=== PATIENT | female | born 1965 | race Asian ===

== ENCOUNTER 2017-03-07 14:39 | Inpatient (IN) | payer OTHER ==
[2017-03-07 14:44] VITALS: BMI 24.3
--- NOTE | 2017-03-07 14:47 | PDOC ---
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 The patient states she was in her usual state of health until she felt left facial numbness around 11:45AM. She also reports experiencing a left-sided tension- like headache. She denies any upper or lower extremity weakness/numbness. She denies visual changes. She denies changes in her speech. Allergies: NSAIDS, Tetanus vaccine <Karla Mauro - Last Filed: 03/07/17 15:55> - General History Source: Patient Exam Limitations: No Limitations <Laureano Barnett - Last Filed: 03/07/17 16:03> - General Chief Complaint: CVA/TIA Stated Complaint: NUMBNESS Time Seen by Provider: 03/07/17 14:41 Past History <Karla Mauro - Last Filed: 03/07/17 15:55> - Past Medical History Anemia: Yes Asthma: No Cancer: No Cardiac Disorders: Yes (CARDIAC CATH-CHEST PAIN) CVA: No COPD: No CHF: No Dementia: No Diabetes: No GI Disorders: Yes (duodenal ulcer;GERD) Disorders: (NEPHROTIC SYNDROME A CHILD) HTN: Yes Hypercholesterolemia: Yes Seizures: No Thyroid Disease: No - Surgical History Abdominal Surgery: No Appendectomy: No Cholecystectomy: No - Reproductive History Dysfunctional Uterine Bleeding: Yes - Immunization History Immunization Up to Date: Yes - Suicide/Smoking/Psychosocial Hx Smoking Status: No Smoking History: Never smoked Years of Tobacco Use: 0 Have you smoked in the past 12 months: No Number of Cigarettes Smoked Daily: 0 Cigars Per Day: 0 Hx Alcohol Use: No Drug/Substance Use Hx: No Substance Use Type: None Hx Substance Use Treatment: No <Laureano Barnett - Last Filed: 03/07/17 16:03> - Past Medical History Allergies/Adverse Reactions: Allergies Allergy/AdvReac Type Severity Reaction Status Date / Time NSAIDS (Non-Steroidal Allergy Mild Verified 03/07/17 14:44 Anti-Inflamma [Nsaids] Tetanus Vaccines and Toxoid Allergy Verified 03/07/17 14:44 [Tetanus] Home Medications: Ambulatory Orders Ascorbate Calcium [Vitamin C] 1,000 mg PO DAILY 02/18/16 Review of Systems - Review of Systems Able to Perform ROS?: Yes Comments:: 03/07/17 14:56 GENERAL/CONSTITUTIONAL: No fever or chills. No weakness. HEAD, EYES, EARS, NOSE AND THROAT: No change in vision. No ear pain or discharge. No sore throat. CARDIOVASCULAR: No chest pain or shortness of breath. RESPIRATORY: No cough, wheezing, or hemoptysis. GASTROINTESTINAL: No nausea, vomiting, diarrhea or constipation. GENITOURINARY: No dysuria, frequency, or change in urination. MUSCULOSKELETAL: No joint or muscle swelling or pain. No neck or back pain. SKIN: No rash NEUROLOGIC: (+) left facial numbness and tension like headache. No vertigo, loss of consciousness, or change in strength ENDOCRINE: No increased thirst. No abnormal weight change. HEMATOLOGIC/LYMPHATIC: No anemia, easy bleeding, or history of blood clots. ALLERGIC/IMMUNOLOGIC: No hives or skin allergy. <Karla Mauro - Last Filed: 03/07/17 15:55> *Physical Exam - Vital Signs Last Vital Signs Temp Pulse Resp BP Pulse Ox 98.5 F 68 18 176/110 98 03/07/17 14:42 03/07/17 14:42 03/07/17 14:42 03/07/17 14:42 03/07/17 14:42 - Physical Exam Comments: 03/07/17 14:57 GENERAL: Awake, alert, and fully oriented, in no acute distress HEAD: No signs of trauma EYES: PERRLA, EOMI, sclera anicteric, conjunctiva clear ENT: Auricles normal inspection, hearing grossly normal, nares patent, oropharynx clear without exudates. Moist mucosa NECK: Normal ROM, supple, no lymphadenopathy, JVD, or masses LUNGS: Breath sounds equal, clear to auscultation bilaterally. No wheezes, and no crackles HEART: Regular rate and rhythm, normal S1 and S2, no murmurs, rubs or gallops ABDOMEN: Soft, nontender, normoactive bowel sounds. No guarding, no rebound. No masses EXTREMITIES: Normal range of motion, no edema. No clubbing or cyanosis. No cords, erythema, or tenderness NEUROLOGICAL: (+) Cranial nerves II-XII intact except decreased left facial sensation. No facial droop, able to wrinkle forehead, 5/5 strength upper and lower extremities. Heel to fournier normal. finger to nose normal. no pronator drift. speech normal. normal gait. Sensation intact in upper and lower extremities. Rapid alternations intact. SKIN: Warm, Dry, normal turgor, no rashes or lesions noted. <Karla Mauro - Last Filed: 03/07/17 15:55> NIH Stroke Scale - Last Known Well Date/Time & Onset Date Last Known Well: 03/07/17 Time Last Known Well: 11:45 - Initial Evaluation Level of consciousness: Alert Ask patient the month and their age: Answers both correctly Ask patient to open & close eyes; make fist and let go: Obeys both correctly Best gaze (horizontal eye movement): Normal Visual field testing: No visual field loss Facial paresis (Show teeth/raise eyebrows/close eyes tight): Normal symmetrical movement Motor Function: Left Arm: Normal Motor Function: Right Arm: Normal (extends arm 90 (or 45) degrees for 10 seconds without drift Motor Function: Left Leg: Normal (extends leg 30 degrees for 5 seconds without drift) Motor Function: Right Leg: Normal (extends leg 30 degrees for 5 seconds without drift) Limb Ataxia: No ataxia Sensory(Use pinprick test arms,legs,trunk,face/side to side): Mild to moderate decrease in sensation Best language (Describe picture, name items, read sentences): No Aphasia Dysarthria (read several words): Normal articulation Extinction and Inattention: No abnormality - Total Score NIH Stroke Scale Score: 1 <Laureano Barnett - Last Filed: 03/07/17 16:03> tPA Exclusion Checklist 0-3hr - Time Elapsed Date last known well: 03/07/17 Time last known well: 11:45 Elaspsed time: Day(s) and 4 Hour(s) and 17 Minutes - Thrombolytic Therapy Candidate Is the patient eligible for Thrombolytic Therapy?: No - Exclusion Criteria 0-3hr SBP greater than 185 or DBP greater than 110mmHg despite tx: No - Relative Exclusion Criteria 0-3h Stroke severity too mild: Yes - Ineligibility reason(s) Reasons No tPA given: See reason(s) noted above <Laureano Barnett - Last Filed: 03/07/17 16:03> TIA Risk Factors - ABCD Score Age: Age < 60 Blood Pressure: SBP =/> 140 Clinical Features of TIA: Uni wk w/wo speech impair Duration: TIA duration = or > 60min Diabetes: No Total ABCD2 Score (0-7):: 5 <Laureano Barnett - Last Filed: 03/07/17 16:03> Heart Score/ECG Review #1 ECG reviewed & interpreted by me at: 14:50 03/07/17 15:02 NSR 76, no std/natali, T wave flat III, normal axis, normal intervals, QTC 456 msec <Laureano Barnett - Last Filed: 03/07/17 16:03> Critical Care Time/MDM Note - Medical Decision Making Note: 03/07/17 14:58 Documentation prepared by Karla Mauro, acting as medical assistant per diem for Laureano Barnett MD, 03/07/17 15:43 Dr. Sim was paged via phone answering service at this time requesting a call back for doctor to doctor consult. 03/07/17 15:47 Dr. Sim returned the call at this time and the patient's case was discussed at length. 03/07/17 15:53 Dr. Gambino, Cardiology, was paged at this time requesting a call back for consult. 03/07/17 15:55 The patient's case was discussed with Dr. William, Cardiology, at this time. <Karla Mauro - Last Filed: 03/07/17 15:55> - Medical Decision Making Note: 03/07/17 14:44 A portion of this note was documented by scribe services under my direction. I have reviewed the details of the note, within reason, and agree with the documentation with the following case summary and management plan written by me. Patient treated in the ED. Nursing notes are reviewed and incorporated into the medical decision-making. Vital signs reviewed. Peripheral IV access obtained by the nurse, laboratory studies are drawn and sent, reviewed and interpreted by myself. Vital Signs Temp Pulse Resp BP Pulse Ox 98.5 F 68 18 176/110 98 03/07/17 14:42 03/07/17 14:42 03/07/17 14:42 03/07/17 14:42 03/07/17 14:42 51-year-old female with past medical history of hypertension presents with left facial numbness since 11:45 AM. The patient is a nurse at [employer]. Was in her usual state of health when approximately 11:45 AM, she felt left facial numbness. Also reported left-sided tension-like headache. Patient denies any other neurological symptoms such as slurring of speech, drooling, upper lower extremity weakness or numbness. Patient does have history of migraines but typically is a right-sided migraine and is never complex. Given that the patient symptoms occurred at 11:45 AM, the patient is at 3 hours since onset. Code noel was initiated. However, NIH stroke scale is 1. Stroke scale is too mild for TPA. Ineligible for TPA. There is no facial droop suggest Contreras's palsy at the moment. Head CT, labs and neuro consultation. 03/07/17 15:[address] reviewed. No acute findings. Migraine medications given including tylenol, reglan, and decadron. Headache improved drastically, but numbness persists. Given the persistence of symptoms, decision was made to admit patient for stroke workup. Pt is not allergic to aspirin but reports GERD. Will give protonix, pepcid, with the aspirin. CBC, BMP 03/07/17 14:50 03/07/17 14:50 CMP Sodium 142 mmol/L (136-145) 03/07/17 14:50 Potassium 3.4 mmol/L (3.5-5.1) L 03/07/17 14:50 Chloride 106 mmol/L (98-107) 03/07/17 14:50 Carbon Dioxide 29 mmol/L (21-32) 03/07/17 14:50 Anion Gap 7 (8-16) L 03/07/17 14:50 BUN 11 mg/dL (7-18) D 03/07/17 14:50 Creatinine 0.7 mg/dL (0.55-1.02) 03/07/17 14:50 Creat Clearance w eGFR > 60 (>60) 03/07/17 14:50 Random Glucose 84 mg/dL (74-106) 03/07/17 14:50 Calcium 8.6 mg/dL (8.5-10.1) 03/07/17 14:50 Total Bilirubin 0.3 mg/dL (0.2-1.0) D 03/07/17 14:50 AST 27 U/L (15-37) D 03/07/17 14:50 ALT 37 U/L (12-78) D 03/07/17 14:50 Alkaline Phosphatase 108 U/L (45-117) 03/07/17 14:50 Creatine Kinase 129 IU/L (26-192) 03/07/17 14:50 Troponin I < 0.02 ng/ml (0.00-0.05) 03/07/17 14:50 Total Protein 7.8 g/dl (6.4-8.2) 03/07/17 14:50 Albumin 4.0 g/dl (3.4-5.0) 03/07/17 14:50 Triglycerides 403 mg/dL (35-160) H D 03/07/17 14:50 Cholesterol 199 mg/dL (50-200) D 03/07/17 14:50 Total LDL Cholesterol 109 mg/dL (5-100) H 03/07/17 14:50 HDL Cholesterol 27 mg/dL (40-60) L 03/07/17 14:[address] Oquendo. Will be hadoop consultant for the case. (neurology). Case discussed with Dr. William (pt's recycling collections driver is Dr. Gambino), who will also follow the case. Patient will be admitted to telemetry admission. Case discussed with Dr. Sim who accepts patient. Case discussed in detail with admitting physician including history, physical exam and ancillary studies. Admitting physician has assumed care for the patient, will follow all pending diagnostics and will complete the evaluation and treatment. <Laureano Barnett - Last Filed: 03/07/17 16:03> Discharge Disposition <Karla Mauro - Last Filed: 03/07/17 15:55> - Discharge Dispostion Admit: Yes <Laureano Barnett - Last Filed: 03/07/17 16:03> - Diagnosis Numbness - Discharge Dispostion Condition at time of disposition: Stable ED Treatment Course - LABORATORY CBC & Chemistry Diagram: 03/07/17 14:50 03/07/17 14:50 - ADDITIONAL ORDERS Additional order review: Laboratory Results 03/07/17 03/07/17 03/07/17 15:20 15:02 14:50 PT with INR INR Sodium 142 Potassium 3.4 L Chloride 106 Carbon Dioxide 29 Anion Gap 7 L BUN 11 D Creatinine 0.7 Creat Clearance w eGFR > 60 Random Glucose 84 Calcium 8.6 Total Bilirubin 0.3 D AST 27 D ALT 37 D Alkaline Phosphatase 108 Creatine Kinase 129 Troponin I < 0.02 Total Protein 7.8 Albumin 4.0 Triglycerides 403 H D Cholesterol 199 D Total LDL Cholesterol 109 H HDL Cholesterol 27 L Urine Color Straw Urine Appearance Clear Urine pH 7.0 D Ur Specific Beverly 1.004 Urine Protein Negative Urine Glucose (UA) Negative Urine Ketones Negative Urine Blood Negative Urine Nitrite Negative Urine Bilirubin Negative Urine Urobilinogen Negative Blood Type O POSITIVE Antibody Screen Negative 03/07/17 14:50 PT with INR 12.00 H INR 1.06 Sodium Potassium Chloride Carbon Dioxide Anion Gap BUN Creatinine Creat Clearance w eGFR Random Glucose Calcium Total Bilirubin AST ALT Alkaline Phosphatase Creatine Kinase Troponin I Total Protein Albumin Triglycerides Cholesterol Total LDL Cholesterol HDL Cholesterol Urine Color Urine Appearance Urine pH Ur Specific Beverly Urine Protein Urine Glucose (UA) Urine Ketones Urine Blood Urine Nitrite Urine Bilirubin Urine Urobilinogen Blood Type Antibody Screen 03/07/17 14:50 RBC 5.36 H D MCV 83.8 MCHC 33.9 RDW 13.2 D MPV 7.3 L Neutrophils % 50.9 Lymphocytes % 37.5 D Monocytes % 8.2 Eosinophils % 2.8 Basophils % 0.6 - RADIOLOGY Radiology Studies Ordered: EXAM#: TYPE/EXAM: RESULT: [id number] CT/HEAD CT (STROKE) Left facial numbness CT scan of the brain without intravenous contrast Since 03/05/2012 There remains minimal volume loss mainly in the high convexity. Mild ventricular dilatation. No mass lesion, gross acute infarct or intracranial hemorrhage are identified. The calvarium is intact. Mild deviation of the nasal septum to the right. Visualized paranasal sinuses and mastoid air cells are well aerated. The calvarium is intact. Impression: No significant interval change or acute intracranial pathology is identified. Reported By: Daxa Jerome MD 03/07/17 1456 - Medications Given in the ED: ED Medications Discontinued Medications Generic Name Dose Route Start Last Admin Trade Name [employer] PRN Reason Stop Dose Admin Acetaminophen 1,000 mg 03/07/17 14:49 03/07/17 15:05 Ofirmev Injection - IVPB 03/07/17 14:50 1,000 mg ONCE ONE Administration Dexamethasone Sodium Phosphate 10 mg 03/07/17 14:58 03/07/17 15:16 Decadron Injection - IVPB 03/07/17 14:59 10 mg ONCE ONE Administration Sodium Chloride 1,000 mls @ 1,000 mls/hr 03/07/17 14:49 03/07/17 15:05 Normal Saline - IV 03/07/17 15:48 1,000 mls/hr ASDIR STA Administration Metoclopramide HCl 10 mg 03/07/17 14:49 03/07/17 15:16 Reglan Injection - IVPUSH 03/07/17 14:50 10 mg ONCE ONE Administration <Karla Mauro - Last Filed: 03/07/17 15:55> - LABORATORY CBC & Chemistry Diagram: 03/07/17 14:50 03/07/17 14:50 <Laureano Barnett - Last Filed: 03/07/17 16:03>
[2017-03-07] MEDS ORDERED: METOCLOPRAMIDE HCL INJECTION 10 MG/2 ML VIAL IVPUSH ONE (14:49)
[2017-03-07] MEDS ORDERED: ACETAMINOPHEN 1000 MG/100 ML VIAL (NON FORMULARY) IVPB ONE (14:49)
[2017-03-07] MEDS ORDERED: SODIUM CHLORIDE 1,000 ML IV STA (14:49)
[2017-03-07] MEDS ORDERED: METOCLOPRAMIDE HCL INJECTION 10 MG/2 ML VIAL ONE (14:52)
[2017-03-07] MEDS ORDERED: ACETAMINOPHEN INJECTION 100 ML IVPB ONE (14:52)
[2017-03-07] MEDS ORDERED: DEXAMETHASONE SOD PHOSPHATE 20 MG/5 ML VIAL IVPB ONE (14:58)
[2017-03-07 14:59] LABS: BASOPHIL 0.6 % (0-2.0); EOSINOPHIL 2.8 % (0-4.5); MCH 28.4 pg (25.7-33.7); MCHC 33.9 g/dl (32.0-36.0); MEAN CELL VOLUME 83.8 fl (80-96); MEAN PLT VOLUME 7.3 fl (7.5-11.1); NEUTROPHILS 50.9 % (42.8-82.8); PLATELET COUNT 250 K/MM3 (134-434); RDW 13.2 % (11.6-15.6); WHITE BLOOD COUNT 6.8 K/mm3 (4.0-10.0)
[2017-03-07] MEDS ORDERED: DEXAMETHASONE SOD PHOSPHATE 10 MG/1 ML VIAL ONE (15:06)
[2017-03-07 15:16] LABS: INR 1.06 (0.82-1.09)
[2017-03-07 15:30] LABS: ANION GAP 7 (8-16); BILIRUBIN,TOTAL 0.3 mg/dL (0.2-1.0); CALCIUM 8.6 mg/dL (8.5-10.1); CHOLESTEROL 199 mg/dL (50-200); CO2 29 mmol/L (21-32); CREATININE 0.7 mg/dL (0.55-1.02); GLUCOSE,RANDOM 84 mg/dL (74-106); SGOT/AST 27 U/L (15-37); SGPT/ALT 37 U/L (12-78); TOT PROT 7.8 g/dl (6.4-8.2)
[2017-03-07 15:31] LABS: ALK PHOS 108 U/L (45-117); CPK 129 IU/L (26-192); TROPONIN I < 0.02 ng/ml (0.00-0.05)
[2017-03-07 15:35] LABS: URINE APPEARANCE CLEAR; URINE BILIRUBIN NEGATIVE (NEGATIVE); URINE BLOOD NEGATIVE (NEGATIVE); URINE COLOR STRAW; URINE GLUCOSE (UA) NEGATIVE (NEGATIVE); URINE KETONE NEGATIVE (NEGATIVE); URINE NITRITE NEGATIVE (NEGATIVE); URINE PROTEIN NEGATIVE (NEGATIVE); URINE UROBILINOGEN NEGATIVE mg/dL (0.2-1.0)
[2017-03-07] MEDS ORDERED: FAMOTIDINE 20 MG/50 ML IVPB 20 MG/50 ML MG IVPB ONE (15:53)
[2017-03-07] MEDS ORDERED: PANTOPRAZOLE SODIUM 40 MG VIAL IVPUSH ONE (15:53)
[2017-03-07] MEDS ORDERED: ASPIRIN 81 MG CHEWABLE TABLETS PO SCH (16:00)
[2017-03-07] MEDS ORDERED: PANTOPRAZOLE SODIUM 40 MG/100 ML BAG IVPB ONE (16:05)
[2017-03-07] MEDS ORDERED: ASPIRIN 81 MG CHEWABLE TABLETS ONE (16:07)
[2017-03-07] MEDS: SODIUM CHLORIDE 1,000 ML IV SCH (17:15)
--- NOTE | 2017-03-07 18:06 | CON.CARD ---
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 The patient states she was in her usual state of health until she felt left facial numbness around 11:45AM. She also reports experiencing a left-sided tension- like headache. She denies any upper or lower extremity weakness/numbness. She denies visual changes. She denies changes in her speech or facial droop. Regarding cardiovascular symptoms, she denies chest pain, dyspnea, palpitations , near or true syncope, orthopnea, PND or LE edema. Allergies: NSAIDS, Tetanus vaccine - History Source History Provided By: Patient Limitations to Obtaining History: No Limitations - Past Medical History ...LMP: 04/13/14 - Alcohol/Substance Use Hx Alcohol Use: No - Smoking History Smoking history: Never smoked Have you smoked in the past 12 months: No Aproximately how many cigarettes per day: 0 Home Medications - Allergies Allergies/Adverse Reactions: Allergies Allergy/AdvReac Type Severity Reaction Status Date / Time NSAIDS (Non-Steroidal Allergy Mild Verified 03/07/17 14:44 Anti-Inflamma [Nsaids] Tetanus Vaccines and Toxoid Allergy Verified 03/07/17 14:44 [Tetanus] - Home Medications Home Medications: Ambulatory Orders Ascorbate Calcium [Vitamin C] 1,000 mg PO DAILY 02/18/16 Review of Systems - Review of Systems Neurological: reports: Headache, Numbness Vital Signs: Vital Signs Temperature 98.5 F 03/07/17 14:42 Pulse Rate 70 03/07/17 16:15 Respiratory Rate 16 03/07/17 16:15 Blood Pressure 155/102 03/07/17 16:15 O2 Sat by Pulse Oximetry (%) 98 03/07/17 16:15 Constitutional: Yes: No Distress, Calm Neck: Yes: Supple Respiratory: Yes: Regular, CTA Bilaterally Gastrointestinal: Yes: Normal Bowel Sounds, Soft Cardiovascular: Yes: Regular Rate and Rhythm JVD: No Carotid Bruit: No Heart Sounds: Yes: S1, S2 Edema: No - Other Data Labs, Other Data: CBC, BMP 03/07/17 14:50 03/07/17 14:50 INR, PTT INR 1.06 (0.82-1.09) 03/07/17 14:50 Troponin, BNP 03/07/17 14:50 Troponin I < 0.02 Troponin, BNP 03/07/17 14:50 Troponin I < 0.02 NSR @ 76 LAE Imaging - Results Cat Scan: Report Reviewed (HCT-Negative) Problem List - Problems (1) Hemiplegic migraine Code(s): G43.409 - HEMIPLEGIC MIGRAINE, NOT INTRACTABLE, W/O STATUS MIGRAINOSUS Qualifiers: Status migrainosus presence: without status migrainosus Intractability: not intractable Qualified Code(s): G43.409 - Hemiplegic migraine, not intractable, without status migrainosus (2) Hypertension Code(s): I10 - ESSENTIAL (PRIMARY) HYPERTENSION Qualifiers: Hypertension type: essential hypertension Qualified Code(s): I10 - Essential (primary) hypertension (3) Numbness Code(s): R20.0 - ANESTHESIA OF SKIN Assessment/Plan 1. Left facial numbness suspect complicated migraine, r/o TIA 2. Hyperternsion P:1. Resume Diovan 80 qd, ASA 81 qd 2. Monitor tele to r/o PAF, Brain MRI per neuro recs, echo and carotid studies 3. Thank you for consultative opportunity
[2017-03-07 18:32] LABS: URINE LEUK ESTERASE Negative (NEGATIVE)
[2017-03-07] MEDS: VALSARTAN 80 MG TABLET (UD) PO SCH (19:01)
[2017-03-08 07:43] LABS: BASOPHIL 0.2 % (0-2.0); MCH 28.6 pg (25.7-33.7); MCHC 34.6 g/dl (32.0-36.0); MEAN CELL VOLUME 82.9 fl (80-96); MEAN PLT VOLUME 7.7 fl (7.5-11.1); NEUTROPHILS 84.8 % (42.8-82.8); PLATELET COUNT 273 K/MM3 (134-434); RDW 13.6 % (11.6-15.6); WHITE BLOOD COUNT 12.7 K/mm3 (4.0-10.0)
[2017-03-08 08:17] LABS: ALBUMIN 3.6 g/dl (3.4-5.0); ANION GAP 10 (8-16); BILIRUBIN,TOTAL 0.2 mg/dL (0.2-1.0); CALCIUM 8.8 mg/dL (8.5-10.1); CO2 24 mmol/L (21-32); CREATININE 0.7 mg/dL (0.55-1.02); GLUCOSE,RANDOM 123 mg/dL (74-106); SGOT/AST 16 U/L (15-37); SGPT/ALT 29 U/L (12-78); TOT PROT 7.1 g/dl (6.4-8.2)
[2017-03-08 08:18] LABS: ALK PHOS 89 U/L (45-117)
--- NOTE | 2017-03-08 09:21 | CONSULT ---
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 The patient states she was in her usual state of health until she felt left facial numbness around 11:45AM the morning of admission. She also reports experiencing a left- sided tension-like headache. She denies any upper or lower extremity weakness/ numbness. She denies visual changes. She denies changes in her speech. She completed CT head which did not show acute changes. She was admitted for CVA work up. I ordered MRI brain, awaiting completion. Reports her L facial weakness /numbness is better this AM. She does not take a daily ASA at this time. - General History Source: Patient Exam Limitations: No Limitations - General Chief Complaint: CVA/TIA Stated Complaint: NUMBNESS Time Seen by Provider: 03/07/17 14:41 Past History <Karla Mauro - Last Filed: 03/07/17 15:55> - Past Medical History Anemia: Yes Asthma: No Cancer: No Cardiac Disorders: Yes (CARDIAC CATH-CHEST PAIN) CVA: No COPD: No CHF: No Dementia: No Diabetes: No GI Disorders: Yes (duodenal ulcer;GERD) Disorders: (NEPHROTIC SYNDROME A CHILD) HTN: Yes Hypercholesterolemia: Yes Seizures: No Thyroid Disease: No - Surgical History Abdominal Surgery: No Appendectomy: No Cholecystectomy: No - Reproductive History Dysfunctional Uterine Bleeding: Yes - Immunization History Immunization Up to Date: Yes - Suicide/Smoking/Psychosocial Hx Smoking Status: No Smoking History: Never smoked Years of Tobacco Use: 0 Have you smoked in the past 12 months: No Number of Cigarettes Smoked Daily: 0 Cigars Per Day: 0 Hx Alcohol Use: No Drug/Substance Use Hx: No Substance Use Type: None Hx Substance Use Treatment: No - Past Medical History Allergies/Adverse Reactions: Allergies Allergy/AdvReac Type Severity Reaction Status Date / Time NSAIDS (Non-Steroidal Allergy Mild Verified 03/07/17 14:44 Anti-Inflamma [Nsaids] Tetanus Vaccines and Toxoid Allergy Verified 03/07/17 14:44 [Tetanus] Home Medications: Ambulatory Orders Ascorbate Calcium [Vitamin C] 1,000 mg PO DAILY 02/18/16 Review of Systems GENERAL/CONSTITUTIONAL: No fever or chills. No weakness. HEAD, EYES, EARS, NOSE AND THROAT: No change in vision. No ear pain or discharge. No sore throat. CARDIOVASCULAR: No chest pain or shortness of breath. RESPIRATORY: No cough, wheezing, or hemoptysis. GASTROINTESTINAL: No nausea, vomiting, diarrhea or constipation. GENITOURINARY: No dysuria, frequency, or change in urination. MUSCULOSKELETAL: No joint or muscle swelling or pain. No neck or back pain. SKIN: No rash NEUROLOGIC: (+) left facial numbness and tension like headache. No vertigo, loss of consciousness, or change in strength ENDOCRINE: No increased thirst. No abnormal weight change. HEMATOLOGIC/LYMPHATIC: No anemia, easy bleeding, or history of blood clots. ALLERGIC/IMMUNOLOGIC: No hives or skin allergy. *Physical Exam Vital Signs Temperature 97.6 F 03/08/17 06:00 Pulse Rate 84 03/08/17 06:00 Respiratory Rate 16 03/08/17 06:00 Blood Pressure 134/87 03/08/17 06:00 O2 Sat by Pulse Oximetry (%) 96 03/07/17 21:00 GENERAL: Awake, alert, and fully oriented, in no acute distress HEAD: No signs of trauma EYES: PERRLA, EOMI, sclera anicteric, conjunctiva clear ENT: Auricles normal inspection, hearing grossly normal, nares patent, oropharynx clear without exudates. Moist mucosa NECK: Normal ROM, supple, no lymphadenopathy, JVD, or masses LUNGS: Breath sounds equal, clear to auscultation bilaterally. No wheezes, and no crackles HEART: Regular rate and rhythm, normal S1 and S2, no murmurs, rubs or gallops ABDOMEN: Soft, nontender, normoactive bowel sounds. No guarding, no rebound. No masses EXTREMITIES: Normal range of motion, no edema. No clubbing or cyanosis. No cords, erythema, or tenderness NEUROLOGICAL: (+) Cranial nerves II-XII intact except decreased left facial sensation. No facial droop, able to wrinkle forehead, 5/5 strength upper and lower extremities. Heel to fournier normal. finger to nose normal. no pronator drift. speech normal. normal gait. Sensation intact in upper and lower extremities. Rapid alternations intact. SKIN: Warm, Dry, normal turgor, no rashes or lesions noted. Head CT reviewed. No acute findings. LABS Sodium 142 mmol/L (136-145) 03/07/17 14:50 Potassium 3.4 mmol/L (3.5-5.1) L 03/07/17 14:50 Chloride 106 mmol/L (98-107) 03/07/17 14:50 Carbon Dioxide 29 mmol/L (21-32) 03/07/17 14:50 Anion Gap 7 (8-16) L 03/07/17 14:50 BUN 11 mg/dL (7-18) D 03/07/17 14:50 Creatinine 0.7 mg/dL (0.55-1.02) 03/07/17 14:50 Creat Clearance w eGFR > 60 (>60) 03/07/17 14:50 Random Glucose 84 mg/dL (74-106) 03/07/17 14:50 Calcium 8.6 mg/dL (8.5-10.1) 03/07/17 14:50 Total Bilirubin 0.3 mg/dL (0.2-1.0) D 03/07/17 14:50 AST 27 U/L (15-37) D 03/07/17 14:50 ALT 37 U/L (12-78) D 03/07/17 14:50 Alkaline Phosphatase 108 U/L (45-117) 03/07/17 14:50 Creatine Kinase 129 IU/L (26-192) 03/07/17 14:50 Troponin I < 0.02 ng/ml (0.00-0.05) 03/07/17 14:50 Total Protein 7.8 g/dl (6.4-8.2) 03/07/17 14:50 Albumin 4.0 g/dl (3.4-5.0) 03/07/17 14:50 Triglycerides 403 mg/dL (35-160) H D 03/07/17 14:50 Cholesterol 199 mg/dL (50-200) D 03/07/17 14:50 Total LDL Cholesterol 109 mg/dL (5-100) H 03/07/17 14:50 HDL Cholesterol 27 mg/dL (40-60) L 03/07/17 14:50 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 The patient states she was in her usual state of health until she felt left facial numbness around 11:45AM the morning of admission. She also reports experiencing a left-sided tension-like headache. She denies any upper or lower extremity weakness/numbness. She denies visual changes. She denies changes in her speech. She completed CT head which did not show acute changes. She was admitted for CVA work up. I ordered MRI brain, awaiting completion. Reports her L facial weakness/numbness is better this AM. She does not take a daily ASA at this time, would not need it at this time, only if CVA noted Could be TIA vs Contreras's vs complicated migraine Monitor blood pressure, maintain < 140/90 Facial exercises
[2017-03-08] MEDS: ASPIRIN 81 MG CHEWABLE TABLETS PO SCH (09:25)
[2017-03-08] MEDS: VALSARTAN 80 MG TABLET (UD) PO SCH (09:25)
--- NOTE | 2017-03-08 09:37 | PN ---
Progress Note, Physician Chief Complaint: Pt lying in bed No fascial numbness or weakness NO headache,no chest pain No facial droop,no speech problem no limb weakness Awaiting for Echo,carotid and MRI of brain Cardiology and Neuro consult appreciated - Current Medication List Current Medications: Active Medications Aspirin (Asa -) 81 mg PO DAILY [facility] Last Admin: 03/08/17 09:25 Dose: 81 mg Sodium Chloride (Normal Saline -) 1,000 mls @ 42 mls/hr IV ASDIR [facility] Last Admin: 03/07/17 17:15 Dose: 42 mls/hr Valsartan (Diovan -) 80 mg PO DAILY [facility] Last Admin: 03/08/17 09:25 Dose: 80 mg - Objective Vital Signs: Vital Signs Temperature 97.6 F 03/08/17 06:00 Pulse Rate 84 03/08/17 06:00 Respiratory Rate 16 03/08/17 06:00 Blood Pressure 134/87 03/08/17 06:00 O2 Sat by Pulse Oximetry (%) 96 03/07/17 21:00 Constitutional: Yes: No Distress Eyes: Yes: Conjunctiva Clear, EOM Intact, PERRL HENT: Yes: WNL Neck: Yes: WNL Cardiovascular: Yes: WNL Respiratory: Yes: WNL Gastrointestinal: Yes: WNL, Normal Bowel Sounds Genitourinary: Yes: WNL Musculoskeletal: Yes: WNL Extremities: Yes: WNL Edema: No Peripheral Pulses WNL: Yes Neurological: Yes: WNL, Alert, Oriented ...Motor Strength: WNL Psychiatric: Yes: WNL, Alert Labs: CBC, BMP 03/08/17 06:20 03/08/17 06:20 INR, PTT INR 1.06 (0.82-1.09) 03/07/17 14:50 Laboratory Results - last 24 hr 03/07/17 03/07/17 03/07/17 14:50 14:50 14:50 WBC 6.8 D RBC 5.36 H D Hgb 15.2 D Hct 44.9 D MCV 83.8 MCH 28.4 D MCHC 33.9 RDW 13.2 D Plt Count 250 MPV 7.3 L Neutrophils % 50.9 Lymphocytes % 37.5 D Monocytes % 8.2 Eosinophils % 2.8 Basophils % 0.6 PT with INR 12.00 H INR 1.06 Sodium 142 Potassium 3.4 L Chloride 106 Carbon Dioxide 29 Anion Gap 7 L BUN 11 D Creatinine 0.7 Creat Clearance w eGFR > 60 Random Glucose 84 Calcium 8.6 Total Bilirubin 0.3 D AST 27 D ALT 37 D Alkaline Phosphatase 108 Creatine Kinase 129 Troponin I < 0.02 Total Protein 7.8 Albumin 4.0 Triglycerides 403 H D Cholesterol 199 D Total LDL Cholesterol 109 H HDL Cholesterol 27 L Urine Color Urine Appearance Urine pH Ur Specific [place] Urine Protein Urine Glucose (UA) Urine Ketones Urine Blood Urine Nitrite Urine Bilirubin Urine Urobilinogen Ur Leukocyte Esterase Blood Type Antibody Screen 03/07/17 03/07/17 03/08/17 15:02 15:20 06:20 WBC 12.7 H D RBC 4.92 Hgb 14.1 Hct 40.8 MCV 82.9 MCH 28.6 MCHC 34.6 RDW 13.6 Plt Count 273 MPV 7.7 Neutrophils % 84.8 H D Lymphocytes % 12.0 D Monocytes % 3.0 L Eosinophils % 0.0 D Basophils % 0.2 PT with INR INR Sodium Potassium Chloride Carbon Dioxide Anion Gap BUN Creatinine Creat Clearance w eGFR Random Glucose Calcium Total Bilirubin AST ALT Alkaline Phosphatase Creatine Kinase Troponin I Total Protein Albumin Triglycerides Cholesterol Total LDL Cholesterol HDL Cholesterol Urine Color Straw Urine Appearance Clear Urine pH 7.0 D Ur Specific [place] 1.004 Urine Protein Negative Urine Glucose (UA) Negative Urine Ketones Negative Urine Blood Negative Urine Nitrite Negative Urine Bilirubin Negative Urine Urobilinogen Negative Ur Leukocyte Esterase Negative Blood Type O POSITIVE Antibody Screen Negative 03/08/17 06:20 WBC RBC Hgb Hct MCV MCH MCHC RDW Plt Count MPV Neutrophils % Lymphocytes % Monocytes % Eosinophils % Basophils % PT with INR INR Sodium 141 Potassium 3.6 Chloride 107 Carbon Dioxide 24 Anion Gap 10 BUN 11 Creatinine 0.7 Creat Clearance w eGFR > 60 Random Glucose 123 H D Calcium 8.8 Total Bilirubin 0.2 D AST 16 D ALT 29 D Alkaline Phosphatase 89 Creatine Kinase Troponin I Total Protein 7.1 Albumin 3.6 Triglycerides Cholesterol Total LDL Cholesterol HDL Cholesterol Urine Color Urine Appearance Urine pH Ur Specific [place] Urine Protein Urine Glucose (UA) Urine Ketones Urine Blood Urine Nitrite Urine Bilirubin Urine Urobilinogen Ur Leukocyte Esterase Blood Type Antibody Screen - ....Imaging Cat Scan: Report Reviewed EKG: Report Reviewed Assessment/Plan Lt facial numbness R/o TIA ? complicated migrain HTN PLAN continuen Diovan Monitor BP Awaiting for MRI of Brain,Echo,Carotid doppler
--- NOTE | 2017-03-08 10:07 | PN ---
Progress Note, Physician Chief Complaint: Events noted History of Present Illness: Patient was seen and examined. Awake and alert. Chart was reviewed Denies chest pain, SOB or palpitations - Current Medication List Current Medications: Active Medications Aspirin (Asa -) 81 mg PO DAILY [facility] Last Admin: 03/08/17 09:25 Dose: 81 mg Sodium Chloride (Normal Saline -) 1,000 mls @ 42 mls/hr IV ASDIR [facility] Last Admin: 03/07/17 17:15 Dose: 42 mls/hr Valsartan (Diovan -) 80 mg PO DAILY [facility] Last Admin: 03/08/17 09:25 Dose: 80 mg - Objective Vital Signs: Vital Signs Temperature 97.6 F 03/08/17 06:00 Pulse Rate 84 03/08/17 06:00 Respiratory Rate 16 03/08/17 06:00 Blood Pressure 134/87 03/08/17 06:00 O2 Sat by Pulse Oximetry (%) 96 03/07/17 21:00 Neck: Yes: Supple Cardiovascular: Yes: Regular Rate and Rhythm, S1, S2 Respiratory: Yes: CTA Bilaterally Gastrointestinal: Yes: Normal Bowel Sounds, Soft. No: Tenderness Edema: No Additional Findings/Remarks: - Review of Systems Constitutional: denies: Chills, Fever HENT: denies: Difficult Swallowing, Throat Pain Neck: denies: Stiffness, Tenderness Cardiovascular: denies: Chest Pain. denies: Palpitations, Shortness of Breath Respiratory: denies: Cough, Hemoptysis, Orthopnea, PND, SOB, SOB on Exertion Gastrointestinal: denies: Abdominal Pain, Constipation, Diarrhea, Melena, Nausea , Rectal Bleeding, Vomiting Genitourinary: denies: Dysuria Musculoskeletal: denies: Back Pain, Joint Pain Neurological: denies: Dizziness, Headache, Seizure, Syncope, Weakness Labs: CBC, BMP 03/08/17 06:20 03/08/17 06:20 INR, PTT INR 1.06 (0.82-1.09) 03/07/17 14:50 Problem List - Problems (1) Migraine Code(s): G43.909 - MIGRAINE, UNSP, NOT INTRACTABLE, WITHOUT STATUS MIGRAINOSUS Qualifiers: Migraine type: unspecified Status migrainosus presence: without status migrainosus Intractability: not intractable Qualified Code(s): G43.909 - Migraine, unspecified, not intractable, without status migrainosus (2) Hypertension Code(s): I10 - ESSENTIAL (PRIMARY) HYPERTENSION Qualifiers: Hypertension type: essential hypertension Qualified Code(s): I10 - Essential (primary) hypertension (3) Numbness Code(s): R20.0 - ANESTHESIA OF SKIN Assessment/Plan 1. Left facial numbness underlying migraine, but also rule out TIA 2. Hyperternsion PLAN: 1. Continue Diovan 80 qd and ASA 81 qd as tolerated 2. Monitor on telemetry to rule out PAF (currently remains in sinus rhythm), Brain MRI per neurology, transthoracic echocardiography and carotid Doppler Further plans are to follow Josh Gambino MD
[2017-03-08 10:48] LABS: CHOLESTEROL 205 mg/dL (50-200)
--- NOTE | 2017-03-08 10:56 | HP ---
DATE OF ADMISSION: HISTORY: The patient is a 51-year-old female with a past medical history of hypertension and headache who came to the emergency room with the complaints of left facial numbness since morning yesterday. The patient states that she was in her usual state of health until she felt left facial numbness around 11:45 a.m. yesterday. She reports experiencing a left-sided tension-like headache also. Denies any lower or upper extremity weakness or numbness. Denies any visual change. No speech problem. No difficulty following. No history of chest pain. No dyspnea or palpation. No syncope, orthopnea, or lower extremity edema. The patient is not taking any medication for migraine or hypertension so came to the emergency room for further evaluation. ALLERGIES: NONSTEROIDAL ANTI-INFLAMMATORY, TETANUS VACINNE. PAST MEDICAL HISTORY: History of hypertension. SOCIAL HISTORY: Never smoked. No history of alcohol or drugs. HOME MEDICATIONS: The patient is taking vitamin C. REVIEW OF SYSTEMS: General symptoms: The patient complains of mild left-sided headache. Neurologic: Complains of headache and numbness. Cardiovascular: History of hypertension. PHYSICAL EXAMINATION: General: The patient is the emergency room. Vital Signs: Temperature 98.5, pulse rate 68, respirations 18, blood pressure 176/110, saturation 98 at the time admitted to the ER. A repeat one shows temperature 98.5, pulse rate 70, respirations 16, blood pressure 155/102 and 98. HEENT: Pupils equally reactive to light and accommodation. Neck: Supple. Respiratory: Equal. Cardiovascular: First and second sound normal. Gastrointestinal: Normal bowel sounds present. Abdomen soft. No tenderness. Bowel sounds present. Neck: No carotid bruits. Extremities: No edema. Neurologic: Cranial nerves 2-12 normal. No apparent motor or sensory deficit. Reflexes normal. No sensory loss on the face. LABORATORIES: CBC normal. CMP normal. PT 12, INR 1.06, AST 27, ALT 37, alkaline phosphatase 108. Troponin negative. Triglycerides 403, total cholesterol 199, LDL 109, HDL 27. EKG: Normal sinus rhythm. No ST-T wave changes. T waves flat in lead 3. Head CT: No intracranial pathology. Patient admitted to the telemetry bed. ADMITTING DIAGNOSES: 1. Left facial numbness. 2. Hypertension. 3. Hemiplegic migraine. PLAN: Cardiology consult. Neurology consult. Continue the BP medication, Diovan 80 mg p.o. daily. Monitor the BP. Repeat a lipid profile fasting. MRA of the brain. Carotid and echocardiogram ordered as per Cardiology. The patient is stable on the floor. CHERRY TONG M.D. [id number]
--- NOTE | 2017-03-08 11:44 | EKG ---
Test Reason : Blood Pressure : / mmHG Vent. Rate : 076 BPM Atrial Rate : 076 BPM P-R Int : 150 ms QRS Dur : 086 ms QT Int : 406 ms P-R-T Axes : 031 -23 018 degrees QTc Int : 456 ms POOR DATA QUALITY, INTERPRETATION MAY BE ADVERSELY AFFECTED NORMAL SINUS RHYTHM POSSIBLE LEFT ATRIAL ENLARGEMENT BORDERLINE ECG WHEN COMPARED WITH ECG OF 09-MAY-2014 11:52, NO SIGNIFICANT CHANGE WAS FOUND Confirmed by KIKO MORALES, LEO ([id number]) on 03/08/2017 11:43:53 AM Referred By: Confirmed By:LEO HOOVER MD
[2017-03-08] MEDS: SODIUM CHLORIDE 1,000 ML IV SCH (18:07)
[2017-03-08] MEDS ORDERED: ATORVASTATIN CA 10 MG TABLET (FP) PO SCH (22:00)
--- NOTE | 2017-03-09 06:15 | HOSP ---
Subjective - Review of Symptoms Subjective: Paged in morning about pt having new onset chest pain. Pt reports pain is more of a pressure centrally located on her chest without any radiation to her limbs or back. Pt states pressure began after walking to bathroom and returning to bed. Pt denies any jaw claudication, diaphoresis, SOB, LE edema. PE: VS: 98% SpO2, P: 57 on monitor; no events on monitor noted, RR: 18 Gen: NAD, laying comfortably in bed Neck: No JVD Cardiac: Bradycardic to normal rate, no murmur noted, S1 and S2 present without abnormalities Lungs: CTA bilaterally no wheezes, rhonchi, rales heard, pressure not reproduced on palpation Abdominal: Soft, nontender, nondistended, no guarding, no hepatojugular reflex Neuro: EOMI, AUSTYN, L-sided facial numbness noted however pt states improved. Strength 5/5 throughout. Alert and orientedx3 A/P 1) New onset chest pressure --Most likely musculoskeletal or anxiety, however cannot r/o cardio event --EKG stat: Sinus bradycardia at 58bpm with some T wave flattenting in V2/V3 seen on prior EKG 03/07 14:51. No change from previous --Troponin ordered; previous troponin done in system showing <0.02 --Pt already on ASA 81mg --Pt already on Lipitor 10mg PO HS Physical Examination Vital Signs: Vital Signs Temperature 97.9 F 03/09/17 02:00 Pulse Rate 78 03/09/17 02:00 Respiratory Rate 18 03/09/17 02:00 Blood Pressure 136/78 03/09/17 02:00 O2 Sat by Pulse Oximetry (%) 97 03/08/17 21:00 Labs: CBC, BMP 03/08/17 06:20 03/08/17 06:20
--- NOTE | 2017-03-09 06:31 | PN ---
Progress Note (short form) - Note Progress Note: Chief Complaint: Events noted, notes reviewed, chest discomfort earlier today with ambulation subsided spontaneously, denies any headaches History of Present Illness: Seen and examined on telemetry. Events noted, notes reviewed, chest discomfort earlier today with ambulation subsided spontaneously, denies any headaches Echocardiography results noted normal LV size and function, trace MR and TR Consider B-Blockers with caution for management of her HTN/migraine headaches, specifically Inderal Recommend outpatient stress echo and agitated saline injection study to evaluate possible PFO (association between PFO's and migraine headaches) - Current Medication List Current Medications Aspirin (Asa -) 81 mg PO DAILY [facility] Last Admin: 03/08/17 09:25 Dose: 81 mg Atorvastatin Calcium (Lipitor -) 10 mg PO HS [facility] Last Admin: 03/08/17 21:12 Dose: 10 mg Sodium Chloride (Normal Saline -) 1,000 mls @ 42 mls/hr IV ASDIR [facility] Last Admin: 03/08/17 18:07 Dose: Not Given Valsartan (Diovan -) 80 mg PO DAILY [facility] Last Admin: 03/08/17 09:25 Dose: 80 mg Review of Systems - Review of Systems Constitutional: denies: Chills, Fever Cardiovascular: As noted above Respiratory: denies: Cough or Sputum Production Gastrointestinal: denies: Nausea, Vomiting, Diarrhea, Constipation or Abdominal Discomfort Neurological: No Symptoms Reported - Objective Vital Signs: Last Vital Signs Temp Pulse Resp BP Pulse Ox 97.6 F 71 18 127/91 97 03/09/17 06:00 03/09/17 06:00 03/09/17 06:00 03/09/17 06:00 03/08/17 21:00 Intake & Output 03/06/17 03/07/17 03/08/17 03/09/17 23:59 23:59 23:59 23:59 Intake Total 168 378 300 Balance 168 378 300 Weight 141 lb 15.996 oz Neck: Supple Negative JVD No Bruit Cardiovascular: S1 S2 Regular Rate and Rhythm No Murmurs Clicks or Gallops Respiratory: Clear to A&P Bilaterally Gastrointestinal: Soft Benign Normal Bowel Sounds Ext: No Edema Labs: CBC, BMP 03/08/17 06:20 03/08/17 06:20 Assessment/Plan ASSESSMENT: 1. Left facial numbness probable migraine aura 2. Hypertension PLAN: 1. Continue Diovan for now and will discuss with PMD and neurology option of initiating Inderal LA therapy 2. Continue ASA 3. Can be D/C from the cardiovascular point of view and F/U in the office for outpatient stress echo and agitated saline injection study/bubble study to evaluate for possible PFO Thank you Osman Hylton M.D.
[2017-03-09 06:56] VITALS: TEMP 97.6
[2017-03-09 09:15] VITALS: BP 115/69; PULSE 72
[2017-03-09] MEDS: VALSARTAN 80 MG TABLET (UD) PO SCH (09:31)
[2017-03-09] MEDS: ASPIRIN 81 MG CHEWABLE TABLETS PO SCH ×2 (09:32→09:38)
--- NOTE | 2017-03-09 09:37 | PN ---
Progress Note, Physician Chief Complaint: Pt sitting in chair,morning events noted,had chest pressure while she walking to the bathroom troponin was negative and ekg was unchanged No fascial numbness or weakness NO headache, No facial droop,no speech problem no limb weakness carotid doppler and MRI of brain was negative Cardiology and Neuro consult appreciated d/c home today - Current Medication List Current Medications: Active Medications Aspirin (Asa -) 81 mg PO DAILY [facility] Last Admin: 03/08/17 09:25 Dose: 81 mg Atorvastatin Calcium (Lipitor -) 10 mg PO HS [facility] Last Admin: 03/08/17 21:12 Dose: 10 mg Sodium Chloride (Normal Saline -) 1,000 mls @ 42 mls/hr IV ASDIR [facility] Last Admin: 03/08/17 18:07 Dose: Not Given Valsartan (Diovan -) 80 mg PO DAILY [facility] Last Admin: 03/08/17 09:25 Dose: 80 mg - Objective Vital Signs: Vital Signs Temperature 97.6 F 03/09/17 06:00 Pulse Rate 72 03/09/17 09:00 Respiratory Rate 14 03/09/17 09:00 Blood Pressure 115/69 03/09/17 09:00 O2 Sat by Pulse Oximetry (%) 98 03/09/17 09:00 Constitutional: Yes: No Distress Eyes: Yes: Conjunctiva Clear HENT: Yes: Atraumatic Neck: Yes: Supple, Trachea Midline Cardiovascular: Yes: Regular Rate and Rhythm Respiratory: Yes: Regular, CTA Bilaterally Gastrointestinal: Yes: Normal Bowel Sounds Musculoskeletal: Yes: WNL Extremities: Yes: WNL Edema: No Peripheral Pulses WNL: Yes Neurological: Yes: WNL, Alert, Oriented ...Motor Strength: WNL Psychiatric: Yes: WNL Labs: CBC, BMP 03/08/17 06:20 03/08/17 06:20 INR, PTT INR 1.06 (0.82-1.09) 03/07/17 14:50 - ....Imaging MRI: Report Reviewed Assessment/Plan Lt facial numbness ,complicated migrain HTN PLAN continuen Diovan Monitor BP For echo and bubble study as OP rec by cardiology
--- NOTE | 2017-03-09 09:43 | PN ---
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 The patient states she was in her usual state of health until she felt left facial numbness around 11:45AM the morning of admission. She also reports experiencing a left- sided tension-like headache. She denies any upper or lower extremity weakness/ numbness. She denies visual changes. She denies changes in her speech. She completed CT head which did not show acute changes. She was admitted for CVA work up. I ordered MRI brain, which was completed and did not show acute changes. Carotid dopplers reviewed and without hemodynamic significant stenosis. Active Medications Aspirin (Asa -) 81 mg PO DAILY [facility] Last Admin: 03/09/17 09:38 Dose: 81 mg Atorvastatin Calcium (Lipitor -) 10 mg PO HS [facility] Last Admin: 03/08/17 21:12 Dose: 10 mg Sodium Chloride (Normal Saline -) 1,000 mls @ 42 mls/hr IV ASDIR [facility] Last Admin: 03/08/17 18:07 Dose: Not Given Valsartan (Diovan -) 80 mg PO DAILY [facility] Last Admin: 03/09/17 09:31 Dose: 80 mg *Physical Exam Vital Signs Period Temp Pulse Resp BP Sys/Bartlett Pulse Ox Last 24 Hr 97.1 F-98.4 F 68-91 14-20 103-145/68-96 97-98 GENERAL: Awake, alert, and fully oriented, in no acute distress HEAD: No signs of trauma EYES: PERRLA, EOMI, sclera anicteric, conjunctiva clear ENT: Auricles normal inspection, hearing grossly normal, nares patent, oropharynx clear without exudates. Moist mucosa NECK: Normal ROM, supple, no lymphadenopathy, JVD, or masses LUNGS: Breath sounds equal, clear to auscultation bilaterally. No wheezes, and no crackles HEART: Regular rate and rhythm, normal S1 and S2, no murmurs, rubs or gallops ABDOMEN: Soft, nontender, normoactive bowel sounds. No guarding, no rebound. No masses EXTREMITIES: Normal range of motion, no edema. No clubbing or cyanosis. No cords, erythema, or tenderness NEUROLOGICAL: (+) Cranial nerves II-XII intact except decreased left facial sensation. No facial droop, able to wrinkle forehead, 5/5 strength upper and lower extremities. Heel to fournier normal. finger to nose normal. no pronator drift. speech normal. normal gait. Sensation intact in upper and lower extremities. Rapid alternations intact. SKIN: Warm, Dry, normal turgor, no rashes or lesions noted. CBCD WBC 12.7 K/mm3 (4.0-10.0) H D 03/08/17 06:20 RBC 4.92 M/mm3 (3.60-5.2) 03/08/17 06:20 Hgb 14.1 GM/dL (10.7-15.3) 03/08/17 06:20 Hct 40.8 % (32.4-45.2) 03/08/17 06:20 MCV 82.9 fl (80-96) 03/08/17 06:20 MCHC 34.6 g/dl (32.0-36.0) 03/08/17 06:20 RDW 13.6 % (11.6-15.6) 03/08/17 06:20 Plt Count 273 K/MM3 (134-434) 03/08/17 06:20 MPV 7.7 fl (7.5-11.1) 03/08/17 06:20 CMP Sodium 141 mmol/L (136-145) 03/08/17 06:20 Potassium 3.6 mmol/L (3.5-5.1) 03/08/17 06:20 Chloride 107 mmol/L (98-107) 03/08/17 06:20 Carbon Dioxide 24 mmol/L (21-32) 03/08/17 06:20 Anion Gap 10 (8-16) 03/08/17 06:20 BUN 11 mg/dL (7-18) 03/08/17 06:20 Creatinine 0.7 mg/dL (0.55-1.02) 03/08/17 06:20 Creat Clearance w eGFR > 60 (>60) 03/08/17 06:20 Calcium 8.8 mg/dL (8.5-10.1) 03/08/17 06:20 Total Bilirubin 0.2 mg/dL (0.2-1.0) D 03/08/17 06:20 AST 16 U/L (15-37) D 03/08/17 06:20 ALT 29 U/L (12-78) D 03/08/17 06:20 Alkaline Phosphatase 89 U/L (45-117) 03/08/17 06:20 Total Protein 7.1 g/dl (6.4-8.2) 03/08/17 06:20 Albumin 3.6 g/dl (3.4-5.0) 03/08/17 06:[address] reviewed. 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 The patient states she was in her usual state of health until she felt left facial numbness around 11:45AM the morning of admission. She also reports experiencing a left-sided tension-like headache. She denies any upper or lower extremity weakness/numbness. She denies visual changes. She denies changes in her speech. She completed CT head which did not show acute changes. She was admitted for CVA work up. MRI brain negative Carotid doppler negative Reports her L facial weakness/numbness is better this AM. Chest pain this AM, Dr. Romero considering Inderall, no objection to this Can continue ASA 81mg for cardiac purposes Discussed with PMD Complicated migraine Monitor blood pressure, maintain < 140/90 Stable for discharge
--- NOTE | 2017-03-15 23:20 | EKG ---
Test Reason : Blood Pressure : / mmHG Vent. Rate : 058 BPM Atrial Rate : 058 BPM P-R Int : 168 ms QRS Dur : 098 ms QT Int : 454 ms P-R-T Axes : -07 -09 024 degrees QTc Int : 445 ms SINUS BRADYCARDIA OTHERWISE NORMAL ECG NO PREVIOUS ECGS AVAILABLE Confirmed by AILEEN CAMERON MD ([id number]) on 03/15/2017 11:20:24 PM Referred By: Confirmed By:AILEEN CAMERON MD
== END 2017-03-09 10:58 | disposition home or self-care (01) | DRG 103 ==
LOC: JER 14:39 → JERBED 15:59 → UNDOADMIN 16:08 → JERBED 16:08 → J4S 18:53
PROVIDERS: ADMIT Family Medicine; ATTEND Family Medicine
DX: G43.109 Migraine with aura, not intractable, without status migrainosus (principal); D64.9 Anemia, unspecified; I10 Essential (primary) hypertension; K26.9 Duodenal ulcer, unspecified as acute or chronic, without hemorrhage or perforation; K21.9 Gastro-esophageal reflux disease without esophagitis; E78.5 Hyperlipidemia, unspecified; R20.0 Anesthesia of skin; R07.89 Other chest pain
CPT/HCPCS: 36415; 70450-TC; 70551-TC; 80053; 80061; 81003; 82465; 82550; 83036; 83718; 83721; 84443; 84478; 84484; 85025; 85610; 86850; 86900; 86901; 93005; 93010; 93306-TC; 93880-TC; 97116-GP; 97161-GP; 99285-25; J8540

== ENCOUNTER 2017-04-23 08:25 | Emergency (ER) | payer OTHER ==
--- NOTE | 2017-04-23 08:32 | PDOC ---
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 Patient's complaining of cough , congestion, fever, body aches. Patient did get her flu shot this year. Patient otherwise has a history of hypertension, and high cholesterol.. PAST MEDICAL HISTORY: no significant history PAST SURGICAL HISTORY: no significant history FAMILY HISTORY: no pertinant history SOCIAL HISTORY: Pt lives with family and is employed. MEDICATIONS: reviewed ALLERGIES: As per nursing notes Review of Systems General: + fevers, + chills, no weakness, no weight loss HEENT: No change in vision. No sore throat,. No ear pain CardioVascular: No chest pain or shortness of breath Respiratory: + cough, no wheezing. Gastrointestinal: no nausea, vomitting, diarrhea or constipation, No rectal bleeding Genitourinary: No dysuria, hematuria, or frequency Musculoskeletal: No joint or muscle pain or swelling Neurologic: No headache, vertigo, dizziness or loss of consciousness Psychiatric: nor depression Skin: No rashes or easy bruising Endocrine: no increased thirst or abnormal weight change Allergic: no skin or latex allergy All other systems reviewed and normal Exam: General: Well-nourished well-developed individual, no acute distress HEENT: Neck: Supple, no meningeal signs, no lymphadenopathy Eyes::Pupils equal reactive and round, extraocular motion intact Chest: Nontender to palpation Cardiac: S1-S2 normal, regular rate and rhythm, no murmurs rubs or gallops Respiratory: Lungs clear to auscultation bilateral Extremities: Warm, dry, no cyanosis, clubbing, or edema Skin: No rashes Neuro: Alert and oriented x3, CN II - XII intact, nonfocal exam with normal strength, normal sensation, normal reflexes, normal gait, Psych: Normal mood and affect Assessment and plan: This is a 51-year-old female who comes in with flulike symptoms. I did not do an influenza screen as the symptoms are consistent with influenza. Patient did have an influenza shot however the shot appears to be only about 10% effective this year so M seeing a lot of patients who had the shot who still or getting the flu. Patient started on Tamiflu as recommended by the CDC. 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 Past History - Past Medical History Allergies/Adverse Reactions: Allergies Allergy/AdvReac Type Severity Reaction Status Date / Time NSAIDS (Non-Steroidal Allergy Mild Verified 04/23/17 08:31 Anti-Inflamma [Nsaids] orange Allergy Verified 04/23/17 08:31 peanut Allergy Verified 04/23/17 08:31 Tetanus Vaccines and Toxoid Allergy Verified 04/23/17 08:31 [Tetanus] Home Medications: Ambulatory Orders Ascorbate Calcium [Vitamin C] 1,000 mg PO DAILY 02/18/16 Atorvastatin Ca [Lipitor] 10 mg PO HS 30 Days #30 tablet 03/09/17 Valsartan [Diovan] 80 mg PO DAILY 30 Days #30 tablet 03/09/17 D-Methorphan/PE/Acetaminophen [Vicks Dayquil Liquicaps] 2 each PO PRN PRN Oseltamivir Phosphate [Tamiflu] 75 mg PO BID #9 capsule 04/23/17 Anemia: Yes Asthma: No Cancer: No Cardiac Disorders: Yes (CARDIAC CATH-CHEST PAIN) CVA: No COPD: No CHF: No Dementia: No Diabetes: No GI Disorders: Yes (duodenal ulcer;GERD) Disorders: (NEPHROTIC SYNDROME A CHILD) HTN: Yes Hypercholesterolemia: Yes Seizures: No Thyroid Disease: No - Surgical History Abdominal Surgery: No Appendectomy: No Cholecystectomy: No - Reproductive History Dysfunctional Uterine Bleeding: Yes - Immunization History Immunization Up to Date: Yes - Suicide/Smoking/Psychosocial Hx Smoking Status: No Smoking History: Never smoked Years of Tobacco Use: 0 Have you smoked in the past 12 months: No Number of Cigarettes Smoked Daily: 0 Cigars Per Day: 0 Hx Alcohol Use: No Drug/Substance Use Hx: No Substance Use Type: None Hx Substance Use Treatment: No *DC/Admit/Observation/Transfer Diagnosis at time of Disposition: Influenza-like illness - Discharge Dispostion Disposition: HOME Admit: No - Prescriptions Prescriptions: Oseltamivir Phosphate [Tamiflu] 75 mg PO BID #9 capsule - Referrals - Patient Instructions Printed Discharge Instructions: Influenza Additional Instructions: It is important that you rest at home, stay well-hydrated and take Tylenol or Motrin as needed for fevers and body aches. Get your prescription for Tamiflu filled and take it one tablet twice a day for the next 5 days. Do not return to work in tell you have not had a fever for at least 24 hours without having to take any medication for the fever. I have given you a note for no work until next Wednesday. However on Wednesday if you' re still running a fever you should not return to work. Return to the emergency department immediately with ANY new, persistent or worsening symptoms. Continue any medications as previously prescribed by your physician. You should follow up with your primary doctor as soon as possible regarding today's emergency department visit. . Please make sure your doctor reviews the results of your emergency evaluation. Thank you for coming to the Emergency Department today for your care. It was a pleasure to see you today. Please note that your evaluation is INCOMPLETE until you follow-up with your doctor. - Post Discharge Activity Forms/Work/School Notes: Back to Work
[2017-04-23] MEDS ORDERED: OSELTAMIVIR PHOSPHATE 75 MG CAPSULE PO ONE (08:33)
[2017-04-23 08:47] VITALS: BP 124/81; PULSE 71; TEMP 98.5; BMI 24.5
== END 2017-04-23 08:50 | disposition home or self-care (01) ==
LOC: FER 08:25
DX: J11.1 Influenza due to unidentified influenza virus with other respiratory manifestations (principal); D64.9 Anemia, unspecified; I10 Essential (primary) hypertension; E78.00 Pure hypercholesterolemia, unspecified
CPT/HCPCS: 99282-25

== ENCOUNTER 2018-06-24 08:47 | Emergency (ER) | payer OTHER ==
--- NOTE | 2018-06-24 08:52 | PDOC ---
History of Present Illness - General Chief Complaint: Nausea/Vomiting Stated Complaint: VOMITING Time Seen by Provider: 06/24/18 08:52 History Source: Patient Exam Limitations: No Limitations - History of Present Illness Initial Comments: 06/24/18 09:09 Ms Reyes is a 52 yo F with a history of HTN, HLD, migraines who presents to the ER with a complaint of vomiting x 3. Pt was in her usual state of health until 3 days ago. She began to have symptoms typical of her migraines. At that time , her headache was manageable, she took Fiorecet which improved her pain. Pt states her headache returned by the following day. She contacted her PMD who stated she possibly has sinusitis (given some associated nasal congestion). She was able to eat last night however, this morning she noted that her headache was severe. 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 CARDIOVASCULAR: No: chest pain, lightheadedness, palpitations, syncope RESPIRATORY: No: cough, shortness of breath GASTROINTESTINAL: Yes: nausea, vomiting No: diarrhea, abdominal pain GENITOURINARY: No: dysuria, hematuria, frequency, urgency, flank pain. MUSCULOSKELETAL: No: back pain, neck pain, joint pain, muscle swelling or pain SKIN: No: lesions, pallor, rash or easy bruising. NEUROLOGIC: Yes: headache No: vertigo, paresthesias, weakness HEMATOLOGIC/LYMPHATIC: No: anemia, easy bleeding, swelling nodes. PE: GENERAL: The patient is in no acute distress, pt appears uncomfortable, photophobic. HEAD: Normal EYES: EOMI, sclera anicteric, conjunctiva clear. ENT: Moist mucous membranes. NECK: Normal range of motion, supple LUNGS: Breath sounds equal, clear to auscultation bilaterally. No wheezes, and no crackles. HEART:Regular rate and rhythm, normal S1 and S2 without murmur, rub or gallop. ABDOMEN: Soft, nontender, normoactive bowel sounds. No guarding, no rebound. EXTREMITIES: Normal range of motion, no edema. NEUROLOGICAL: Cranial nerves II through XII grossly intact. Normal speech. No focal neurological deficits. SKIN: Warm, Dry, normal turgor, no rashes or lesions noted. 06/24/18 09:24 Past History - Past Medical History Allergies/Adverse Reactions: Allergies Allergy/AdvReac Type Severity Reaction Status Date / Time NSAIDS (Non-Steroidal Allergy Mild Verified 06/24/18 08:48 Anti-Inflamma [Nsaids] orange Allergy Verified 06/24/18 08:48 peanut Allergy Verified 06/24/18 08:48 Tetanus Vaccines and Toxoid Allergy Verified 06/24/18 08:48 [Tetanus] Home Medications: Ambulatory Orders Atorvastatin Ca [Lipitor] 10 mg PO HS 30 Days #30 tablet 03/09/17 Propranolol HCl 20 mg PO BID 09/26/17 Metoclopramide HCl [Reglan] 10 mg PO BID PRN #20 tablet 06/24/18 Anemia: Yes Asthma: No Cancer: No Cardiac Disorders: Yes (CARDIAC CATH-CHEST PAIN) CVA: No COPD: No CHF: No Dementia: No Diabetes: No GI Disorders: Yes (duodenal ulcer;GERD) Disorders: (NEPHROTIC SYNDROME A CHILD) HTN: Yes Hypercholesterolemia: Yes Seizures: No Thyroid Disease: No - Surgical History Abdominal Surgery: No Appendectomy: No Cholecystectomy: No - Reproductive History Dysfunctional Uterine Bleeding: Yes - Immunization History Immunization Up to Date: Yes - Suicide/Smoking/Psychosocial Hx Smoking Status: No Smoking History: Never smoked Years of Tobacco Use: 0 Have you smoked in the past 12 months: No Number of Cigarettes Smoked Daily: 0 Cigars Per Day: 0 Hx Alcohol Use: No Drug/Substance Use Hx: No Substance Use Type: None Hx Substance Use Treatment: No ED Treatment Course - LABORATORY CBC & Chemistry Diagram: 06/24/18 08:55 06/24/18 09:00 Medical Decision Making - Medical Decision Making 06/24/18 09:23 52 yo F presenting to the ER with a complaint of nausea and vomiting in the setting of severe headaches which began 2 days ago No trauma No fevers Headaches similar to prior headaches Doubt this is related to abdominal pathology as examination is benign Pt headache significantly worsened this morning which raises the possibility of SAH or other worrisome intracranial pathology however, pt states headache is typical for her and she would not in fact have come in to the ER were she not vomiting 06/24/18 09:24 Will do: Labs IVF Reglan/Tylenol IV Fiorecet Will re assess For now, pt would like to avoid CT scanning as she has had multiple CT scans and would like to avoid the radiation 06/24/18 09:57 Laboratory Tests 06/24/18 06/24/18 08:55 09:00 WBC 6.4 Hgb 13.6 Hct 41.6 Plt Count 244 BUN 17 Creatinine 0.7 Total Amylase 63 Pt feels better Fiorecet offered Pt will let me know if she wants to take this *DC/Admit/Observation/Transfer Diagnosis at time of Disposition: Migraine Qualifiers: Migraine type: unspecified Status migrainosus presence: without status migrainosus Intractability: not intractable Qualified Code(s): G43.909 - Migraine, unspecified, not intractable, without status migrainosus Vomiting Qualifiers: Vomiting type: unspecified Vomiting Intractability: non-intractable Nausea presence: with nausea Qualified Code(s): R11.2 - Nausea with vomiting, unspecified - Discharge Dispostion Disposition: HOME Condition at time of disposition: Stable Decision to Admit order: No - Prescriptions Prescriptions: Metoclopramide HCl [Reglan] 10 mg PO BID PRN #20 tablet PRN Reason: Nausea - Referrals - Patient Instructions Printed Discharge Instructions: Migraine Headaches (Alternative Therapy), DI for Migraine, DI for Vomiting -- Adult Additional Instructions: Ms. Reyes, Thank you for coming in to the ER today. You labs are normal. I am happy that you are feeling better You can take Fioricet as previously prescribed You may want to follow up with Neurology (Dr. Bains or Vidhya) Return to the emergency department immediately with ANY new, persistent or worsening symptoms. Continue any medications as previously prescribed by your physician. You should follow up with your primary doctor as soon as possible regarding today's emergency department visit. Thank you for coming to the [facility] today for your care. It was a pleasure to see you today. Please note that your evaluation is INCOMPLETE until you follow-up with your doctor. - Post Discharge Activity Forms/Work/School Notes: Back to Work
[2018-06-24 08:53] VITALS: TEMP 97.5; BMI 24.3
[2018-06-24] MEDS ORDERED: SODIUM CHLORIDE 1,000 ML IV STA (08:57)
[2018-06-24] MEDS ORDERED: METOCLOPRAMIDE HCL INJECTION 10 MG/2 ML VIAL IVPUSH ONE (08:59)
[2018-06-24] MEDS ORDERED: ACETAMINOPHEN 1000 MG/100 ML VIAL (NON FORMULARY) IVPB ONE (08:59)
[2018-06-24] MEDS ORDERED: ACETAMINOPHEN INJECTION 100 ML IVPB ONE (09:02)
[2018-06-24] MEDS ORDERED: METOCLOPRAMIDE HCL INJECTION 10 MG/2 ML VIAL ONE (09:02)
[2018-06-24] MEDS ORDERED: FAMOTIDINE 20 MG/50 ML IVPB 20 MG/50 ML MG IVPB ONE ×2 (09:04→09:13)
[2018-06-24 09:11] LABS: BASO % 0.3 % (0-2.0); EOS % 2.1 % (0-4.5); HEMATOCRIT 41.6 % (32.4-45.2); HEMOGLOBIN 13.6 GM/dl (10.7-15.3); LYMPH % 25.8 % (8-40); MCH 27.9 pg (25.7-33.7); MCHC 32.9 g/dl (32.0-36.0); MEAN CELL VOLUME 84.8 fl (80-96); MEAN PLT VOLUME 7.5 fl (7.5-11.1); MONO % 6.1 % (3.8-10.2); NEUT % 65.7 % (42.8-82.8); PLATELET COUNT 244 K/MM3 (134-434); RDW 12.6 % (11.6-15.6); WHITE BLOOD COUNT 6.4 K/mm3 (4.0-10.8)
[2018-06-24 09:27] LABS: ALBUMIN 4.2 g/dl (3.4-5.0); ALK PHOS 100 U/L (45-117); AMYLASE 63 U/L (25-115); ANION GAP 8 MMOL/L (8-16); BILIRUBIN,TOTAL 0.3 mg/dl (0.2-1); BLOOD UREA NITROGEN 17 mg/dl (7-18); CHLORIDE 106 mmol/L (98-107); CO2 26 mmol/L (21-32); CREATININE 0.7 mg/dl (0.55-1.3); GLUCOSE,RANDOM 116 mg/dl (74-106); POTASSIUM 3.7 mmol/L (3.5-5.1); SGOT/AST 32 U/L (15-37); SGPT/ALT 24 U/L (13-61); SODIUM 140 mmol/L (136-145); TOT PROT 7.1 g/dl (6.4-8.2)
[2018-06-24] MEDS ORDERED: ACETAMINOPHEN/CAFFEINE/BUTALBITAL 1 TAB PO ONE (09:59)
[2018-06-24] MEDS ORDERED: ACETAMINOPHEN/CAFFEINE/BUTALBITAL 1 TAB ONE (10:00)
[2018-06-24 10:07] VITALS: BP 116/71; PULSE 67
[2018-06-24 10:39] LABS: LIPASE 137 U/L (73-393)
== END 2018-06-24 11:56 | disposition home or self-care (01) ==
LOC: FER 08:47
PROC: 3E033NZ Introduction of Analgesics, Hypnotics, Sedatives into Peripheral Vein, Percutaneous Approach (ICD-10-PCS; principal; 2018-06-24)
PROC: 3E033GC Introduction of Other Therapeutic Substance into Peripheral Vein, Percutaneous Approach (ICD-10-PCS; 2018-06-24)
PROC: 3E0337Z Introduction of Electrolytic and Water Balance Substance into Peripheral Vein, Percutaneous Approach (ICD-10-PCS; 2018-06-24)
DX: G43.909 Migraine, unspecified, not intractable, without status migrainosus (principal); R11.2 Nausea with vomiting, unspecified
CPT/HCPCS: 36415; 80053; 82150; 83690; 85025; 99285-25; J0131; J7030

== ENCOUNTER 2018-12-24 08:59 | Emergency (ER) | payer OTHER ==
[2018-12-24 09:14] VITALS: BP 134/96; PULSE 95; TEMP 99.8; BMI 24.2
--- NOTE | 2018-12-24 09:16 | PDOC ---
History of Present Illness - General Chief Complaint: Sore Throat Stated Complaint: SORE THROAT & FEVER Time Seen by Provider: 12/24/18 09:15 - History of Present Illness Initial Comments: 12/24/18 09:27 Pt presents to the ED complaining of a 3 day history of sore throat with fever. Denies rash, cough, nasal congestion or sick contacts. Denies nausea, vomiting or abdominal pain. patient has NSAID allergy but has taken tylenol for pain with minimal relief. Last dose was yesterday. 12/24/18 09:28 Past History - Past Medical History Allergies/Adverse Reactions: Allergies Allergy/AdvReac Type Severity Reaction Status Date / Time NSAIDS (Non-Steroidal Allergy Mild Verified 06/24/18 08:48 Anti-Inflamma [Nsaids] orange Allergy Verified 06/24/18 08:48 peanut Allergy Verified 06/24/18 08:48 Tetanus Vaccines and Toxoid Allergy Verified 06/24/18 08:48 [Tetanus] Home Medications: Ambulatory Orders Atorvastatin Ca [Lipitor] 10 mg PO HS 30 Days #30 tablet 03/09/17 Amoxicillin - [Amoxicillin 500mg Capsule -] 500 mg PO BID #20 capsule 12/24/18 Propranolol HCl 40 mg PO BID 12/24/18 Anemia: Yes Asthma: No Cancer: No Cardiac Disorders: Yes (CARDIAC CATH-CHEST PAIN) CVA: No COPD: No CHF: No Dementia: No Diabetes: No GI Disorders: Yes (duodenal ulcer;GERD) Disorders: (NEPHROTIC SYNDROME A CHILD) HTN: Yes Hypercholesterolemia: Yes Seizures: No Thyroid Disease: No - Surgical History Abdominal Surgery: No Appendectomy: No Cholecystectomy: No - Reproductive History Dysfunctional Uterine Bleeding: Yes - Immunization History Immunization Up to Date: Yes - Suicide/Smoking/Psychosocial Hx Smoking Status: No Smoking History: Never smoked Years of Tobacco Use: 0 Have you smoked in the past 12 months: No Number of Cigarettes Smoked Daily: 0 Cigars Per Day: 0 Hx Alcohol Use: No Drug/Substance Use Hx: No Substance Use Type: None Hx Substance Use Treatment: No Review of Systems - Review of Systems Able to Perform ROS?: Yes Is the patient limited Singaporean proficient: No Constitutional: Yes: Chills, Fever, Loss of Appetite HEENTM: Yes: Throat Pain, Throat Swelling, Difficulty Swallowing. No: Symptoms Reported, See HPI, Eye Pain, Blurred Vision, Tearing, Recent change in vision, Double Vision, Cataracts, Ear Pain, Ocular Prothesis, Ear Discharge, Nose Pain, Nose Congestion, Tinnitus, Nose Bleeding, Hearing Loss, Mouth Pain, Dental Problems, Mouth Swelling, Other Respiratory: No: Symptoms reported, See HPI, Cough, Orthopnea, Shortness of Breath, SOB with Exertion, SOB at Rest, Stridor, Wheezing, Productive cough, Hemoptysis, Other Cardiac (ROS): No: Symptoms Reported, See HPI, Chest Pain, Edema, Irregular Heart Rate, Lightheadedness, Palpitations, Syncope, Chest Tightness, Other ABD/GI: No: Symptoms Reported, See HPI, Abdominal Distended, Abd. Pain w/ defecation, Blood Streaked Bowels, Constipated, Diarrhea, Difficulty Swallowing , Nausea, Poor Appetite, Poor Fluid Intake, Rectal Bleeding, Vomiting, Indigestion, Abdominal cramping, Tarry Stools, Other : No: Symptoms Reported, See HPI, Burning, Dysuria, Discharge, Frequency, Flank Pain, Hematuria, Incontinence, Pain, Urgency, Testicular Mass, Testicular Swelling, Lesions, Testicular Pain, Other Musculoskeletal: No: Symptoms Reported, See HPI, Back Pain, Gout, Joint Pain, Joint Swelling, Muscle Pain, Muscle Weakness, Neck Pain, Joint Stiffness, Other Integumentary: No: Symptoms Reported, See HPI, Bruising, Change in Color, Change in Hair/Nails, Dryness, Erythema, Flushing, Lesions, Lumps, Pallor, Pruritus, Rash, Sweating, Other *Physical Exam - Vital Signs Last Vital Signs Temp Pulse Resp BP Pulse Ox 99.8 F H 95 H 16 134/96 99 12/24/18 09:00 12/24/18 09:00 12/24/18 09:00 12/24/18 09:00 12/24/18 09:00 - Physical Exam Comments: 12/24/18 09:34 GEN: alert, NAD HEEnT: TMs clear b/l throat erythematous without swelling, uvula midline Cv: rrr no m/r/g Pulm: CTA b/l Abodmen: soft, non tender, non distended neuro: aaox3, CN grossly intact. moving all extremities, ambulatory Medical Decision Making - Medical Decision Making 12/24/18 09:36 pt presents to the ED complaining of sore throat with fever. Most likely viral pharyngitis, but will check rapid strep. Will treat with IVF and IV tylenol for symptomatic relief. Will reassess. 12/24/18 10:36 rapid strep is positive. Will discharge home with antibiotics. *DC/Admit/Observation/Transfer Diagnosis at time of Disposition: Strep pharyngitis - Discharge Dispostion Disposition: HOME Condition at time of disposition: Good Decision to Admit order: No - Prescriptions Prescriptions: Amoxicillin - [Amoxicillin 500mg Capsule -] 500 mg PO BID #20 capsule - Referrals Referrals: Gunnar Sim MD [Primary Care Provider] - - Patient Instructions Printed Discharge Instructions: DI for Strep Throat Additional Instructions: you came to the ED with a sore throat. You have strep throat, so I have written you a prescription for amoxicillin. you should take the antibiotic until it is all gone. Return to the ED for severe sore throat unable to swallow liquids, difficulty breathing, nausea and vomiting unable to keep fluids down, other new or worsening symptoms. - Post Discharge Activity Forms/Work/School Notes: Back to Work
[2018-12-24] MEDS ORDERED: ACETAMINOPHEN 1000 MG/100 ML VIAL (NON FORMULARY) IVPB ONE (09:21)
[2018-12-24] MEDS ORDERED: SODIUM CHLORIDE 0.9% 500 ML INFUS.BAG IV ONE (09:21)
[2018-12-24] MEDS ORDERED: ACETAMINOPHEN INJECTION 100 ML IVPB ONE (09:25)
[2018-12-24] MEDS ORDERED: DEXAMETHASONE 4 MG TABLET (FP) PO ONE (09:30)
[2018-12-24] MEDS ORDERED: DEXAMETHASONE 4 MG TABLET (FP) ONE (09:42)
[2018-12-24] MEDS ORDERED: AMOXICILLIN 500 MG CAPSULE (FP) PO ONE (10:30)
[2018-12-24] MEDS ORDERED: AMOXICILLIN 250 MG CAPSULE ONE (10:32)
== END 2018-12-24 10:46 | disposition home or self-care (01) ==
LOC: FER 08:59
PROC: 3E033NZ Introduction of Analgesics, Hypnotics, Sedatives into Peripheral Vein, Percutaneous Approach (ICD-10-PCS; principal; 2018-12-24)
PROC: 3E0337Z Introduction of Electrolytic and Water Balance Substance into Peripheral Vein, Percutaneous Approach (ICD-10-PCS; 2018-12-24)
DX: J02.0 Streptococcal pharyngitis (principal)
CPT/HCPCS: 87880; 99282-25; J0131

== ENCOUNTER 2019-01-29 13:57 | Emergency (ER) | payer OTHER ==
[2019-01-29] MEDS ORDERED: SODIUM CHLORIDE 0.9% 1000 ML INFUS.BAG IV ONE (14:07)
[2019-01-29] MEDS ORDERED: ACETAMINOPHEN 1000 MG/100 ML VIAL (NON FORMULARY) IVPB ONE (14:07)
[2019-01-29] MEDS ORDERED: PANTOPRAZOLE SODIUM 40 MG VIAL IVPUSH ONE (14:08)
[2019-01-29 14:09] VITALS: TEMP 98.5; BMI 24.2
[2019-01-29] MEDS ORDERED: ACETAMINOPHEN INJECTION 100 ML IVPB ONE (14:20)
[2019-01-29] MEDS ORDERED: PANTOPRAZOLE SODIUM 40 MG VIAL ONE (14:21)
--- NOTE | 2019-01-29 14:42 | PDOC ---
Documentation entered by Jannet Chávez SCRIBE, acting as scribe for Opal Adamson DO. Opal Adamson DO: This documentation has been prepared by the stevenibcarlo, Jannet Chávez SCRIBE, under my direction and personally reviewed by me in its entirety. I confirm that the documentation accurately reflects all work, treatment, procedures, and medical decision making performed by me. History of Present Illness - General Chief Complaint: Pain Stated Complaint: ABD PAIN, LOOSE BM Time Seen by Provider: 01/29/19 14:06 History Source: Patient Exam Limitations: No Limitations - History of Present Illness Initial Comments: 01/29/19 14:49 The patient is a 53-year-old female with a past medical history significant for HTN, HLD, migraines who present to the emergency department with diarrhea. The patient reports on December 24, her PCP diagnosed her with strep and was sent home with amoxicillin abx. The patient reports finishing the course on the . The patient reports since January 06, shes been having intermittent episodes of diarrhea, which worsened last night after having spicy food. The patient reports shes been having frequent episodes of diarrhea since last night , reports having 6 episodes today. The patient reports she may have seen blood in the stool. The patient reports associated symptoms of abdominal distention and crampy abdominal pain. The patient reports shes having difficulty eating but reports having breakfast today. Denies fever, chills, chest pain, SOB. Denies sore throat. The patient had an endoscopy done with Dr. Weaver, denies prior colonoscopy. Allergies: NSAIDs Social history: No reported use of tobacco, alcohol or recreational drugs. Surgical history: Hysterectomy PCP: Dr. Seth Past History - Past Medical History Allergies/Adverse Reactions: Allergies Allergy/AdvReac Type Severity Reaction Status Date / Time NSAIDS (Non-Steroidal Allergy Mild Verified 06/24/18 08:48 Anti-Inflamma [Nsaids] orange Allergy Verified 06/24/18 08:48 peanut Allergy Verified 06/24/18 08:48 Tetanus Vaccines and Toxoid Allergy Verified 06/24/18 08:48 [Tetanus] FLU VACCINE Allergy Uncoded 01/29/19 13:59 Home Medications: Ambulatory Orders Atorvastatin Ca [Lipitor] 10 mg PO HS 30 Days #30 tablet 03/09/17 Propranolol HCl 40 mg PO BID 12/24/18 metroNIDAZOLE [Flagyl -] 500 mg PO TID #21 tablet 01/29/19 Anemia: Yes Asthma: No Cancer: No Cardiac Disorders: Yes (CARDIAC CATH-CHEST PAIN) CVA: No COPD: No CHF: No Dementia: No Diabetes: No GI Disorders: Yes (duodenal ulcer;GERD) Disorders: (NEPHROTIC SYNDROME A CHILD) HTN: Yes Hypercholesterolemia: Yes Seizures: No Thyroid Disease: No Other medical history: migraines - Surgical History Abdominal Surgery: No Appendectomy: No Cholecystectomy: No - Reproductive History Dysfunctional Uterine Bleeding: Yes - Immunization History Immunization Up to Date: Yes - Psycho Social/Smoking Cessation Hx Smoking Status: No Smoking History: Never smoked Years of Tobacco Use: 0 Have you smoked in the past 12 months: No Number of Cigarettes Smoked Daily: 0 Cigars Per Day: 0 Hx Alcohol Use: No Drug/Substance Use Hx: No Substance Use Type: None Hx Substance Use Treatment: No Review of Systems - Review of Systems Able to Perform ROS?: Yes Comments:: 01/29/19 14:59 GENERAL/CONSTITUTIONAL: No fever or chills. No weakness. HEAD, EYES, EARS, NOSE AND THROAT: No change in vision. No ear pain or discharge. No sore throat. GASTROINTESTINAL: +abdominal bloating and diarrhea. No nausea, vomiting, constipation. GENITOURINARY: No dysuria, frequency, or change in urination. CARDIOVASCULAR: No chest pain or shortness of breath. RESPIRATORY: No cough, wheezing, or hemoptysis. MUSCULOSKELETAL: No joint or muscle swelling or pain. No neck or back pain. SKIN: No rash NEUROLOGIC: No headache, vertigo, loss of consciousness, or change in strength/ sensation. ENDOCRINE: No increased thirst. No abnormal weight change. HEMATOLOGIC/LYMPHATIC: No anemia, easy bleeding, or history of blood clots. ALLERGIC/IMMUNOLOGIC: No hives or skin allergy. *Physical Exam - Vital Signs Last Vital Signs Temp Pulse Resp BP Pulse Ox 98.5 F 62 18 155/110 H 99 01/29/19 13:57 01/29/19 13:57 01/29/19 13:57 01/29/19 13:57 01/29/19 13:57 - Physical Exam Comments: 01/29/19 15:01 Constitutional: Awake, alert, oriented. Nontoxic appearing. Head: Normocephalic. Atraumatic Eyes: PERRL. EOMI. Conjunctivae are not pale. ENT: Mucous membranes are moist and intact. Posterior pharynx without exudates or erythema. Uvula midline. Neck: Supple. Full ROM. No lymphadenopathy. Cardiovascular: Regular rate. Regular rhythm. S1, S2 regular. Distal pulses are 2+ and symmetric. Pulmonary/Chest: No evidence of respiratory distress. Clear to auscultation bilaterally No wheezing, rales or rhonchi. Abdominal: +soft, abdominal distended, normal bowel sounds, diffused tenderness , with more tender on the RUQ and LLQ. Back: No CVA tenderness. Musculoskeletal: No edema. No cyanosis. No clubbing. Full range of motion in all extremities. Nocalf tenderness. Radial/pedal pulses are intact and 2+ bilaterally Skin: Skin is warm and dry. No petechiae. No purpura. Neurological: Alert and oriented to person, place, and time. Cranial nerves II -XII are grossly intact. Normal speech. Strength is grossly symmetric. No sensory deficits. Psychiatric: Good eye contact. Normal interaction, affect and behavior. ED Treatment Course - LABORATORY CBC & Chemistry Diagram: 01/29/19 14:50 01/29/19 14:45 - RADIOLOGY Radiology Studies Ordered: Category Date Time Status ABDOMEN & PELVIS CT W/O CONTR [CT] Stat CT Scan 01/29/19 14:06 Ordered Medical Decision Making - Medical Decision Making 01/29/19 14:31 a/p: 53yo female with hx of htn and hld with diarrhea intermittently x 1m with poss blood in her stool today -pt states abd cramping, 6 episodes of diarrhea today -states decreased po intake -states mild abd distension -LUQ and LLQ ttp -concern for colitis vs cdiff - though a month without abx -no fevers -pt felt normal yesterday and was eating bread and potato last night prior to the diarrhea starting again -pt denies n/v -will send labs, stool for culture -stool for heme -ct abd/pelvis 01/29/19 16:04 discussed labs results with the patient pt still with cramping, but no diarrhea despite drinking the PO contrast pt currently refuses rectal exam at this time 01/29/19 17:16 mild rectal thickening, proctocolitis on ct will give gi follow up and oral abx for diarrhea and proctocolitis stable for dc to home has tolerated po intake in the ED pt states she will call dr. jones and schedule a follow up with him for colonoscopy Discharge - Discharge Information Problems reviewed: Yes Clinical Impression/Diagnosis: Diarrhea, Proctitis Condition: Stable Disposition: HOME - Admission No - Additional Discharge Information Prescriptions: metroNIDAZOLE [Flagyl -] 500 mg PO TID #21 tablet - Follow up/Referral Referrals: Gunnar Sim MD [Primary Care Provider] - Nasima Jones MD [Staff Physician] - - Patient Discharge Instructions Patient Printed Discharge Instructions: DI for Diarrhea and Traveler's Diarrhea -- Adult Additional Instructions: Please eat the BRAT diet - bananas, rice, apple sauce and toast. Please drink plenty of fluids. Please call Dr. Jones and schedule a follow up with him and have a colonoscopy. If the rectal bleeding continues please return to the ED and call Dr. Jones. Please return to the ED with any further concerns or complaints. Please also call your PMD to schedule a follow up. - Post Discharge Activity Work/Back to School Note: Back to Work
[2019-01-29 15:00] LABS: BASO % 0.3 % (0-2.0); EOS % 1.6 % (0-4.5); HEMATOCRIT 39.2 % (32.4-45.2); HEMOGLOBIN 13.5 GM/dl (10.7-15.3); LYMPH % 23.7 % (8-40); MCH 29.1 pg (25.7-33.7); MCHC 34.5 g/dl (32.0-36.0); MEAN CELL VOLUME 84.2 fl (80-96); MEAN PLT VOLUME 8.4 fl (7.5-11.1); MONO % 7.7 % (3.8-10.2); NEUT % 66.7 % (42.8-82.8); PLATELET COUNT 226 K/MM3 (134-434); RBC 4.65 M/mm3 (3.60-5.2); RDW 12.9 % (11.6-15.6); WHITE BLOOD COUNT 8.7 K/mm3 (4.0-10.8)
[2019-01-29 15:02] LABS: INR 1.21 (0.82-1.09); PROTHROMBIN TIME (PATIENT) 13.5 SEC (10.2-13.0)
[2019-01-29 15:08] LABS: BILIRUBIN,TOTAL 0.5 mg/dl (0.2-1); CALCIUM 8.7 mg/dl (8.5-10); CREATININE 0.7 mg/dl (0.55-1.3); MAGNESIUM 2.1 mg/dL (1.8-2.4); POTASSIUM 3.3 mmol/L (3.5-5.1)
[2019-01-29] MEDS ORDERED: POTASSIUM CHLORIDE TABS 20 MEQ TABLET.ER (FP) PO ONE ×2 (15:20→15:22)
[2019-01-29] MEDS ORDERED: DICYCLOMINE HCL 20 MG TABLET PO ONE (16:15)
[2019-01-29] MEDS ORDERED: DICYCLOMINE HCL 10 MG CAPSULE ONE (16:43)
[2019-01-29] MEDS ORDERED: metroNIDAZOLE 500 MG TABLET PO ONE (17:19)
[2019-01-29] MEDS ORDERED: metroNIDAZOLE 250 MG TABLET ONE (17:24)
[2019-01-29 17:35] VITALS: BP 126/79; PULSE 59
== END 2019-01-29 17:35 | disposition home or self-care (01) ==
LOC: FER 13:57
PROC: 3E033NZ Introduction of Analgesics, Hypnotics, Sedatives into Peripheral Vein, Percutaneous Approach (ICD-10-PCS; principal; 2019-01-29)
PROC: 3E03329 Introduction of Other Anti-infective into Peripheral Vein, Percutaneous Approach (ICD-10-PCS; 2019-01-29)
PROC: 3E0337Z Introduction of Electrolytic and Water Balance Substance into Peripheral Vein, Percutaneous Approach (ICD-10-PCS; 2019-01-29)
DX: R19.7 Diarrhea, unspecified (principal); K62.89 Other specified diseases of anus and rectum; Z88.8 Allergy status to other drugs, medicaments and biological substances; Z91.018 Allergy to other foods; Z91.010 Allergy to peanuts; I10 Essential (primary) hypertension; E78.5 Hyperlipidemia, unspecified
CPT/HCPCS: 36415; 74176-TC; 80053; 81003; 83605; 83690; 83735; 85025; 85610; 85730; 99285-25; J0131; J7030

== ENCOUNTER 2019-02-20 09:05 | Day surgery (SDC) | payer OTHER ==
[2019-02-20 09:43] VITALS: BMI 23.5
[2019-02-20 10:50] VITALS: TEMP 98
[2019-02-20 11:25] VITALS: BP 140/69; PULSE 60
== END 2019-02-20 11:45 | disposition home or self-care (01) ==
LOC: JASU-ENDO 09:05
PROVIDERS: ATTEND Internal Medicine Gastroenterology
PROC: 0DJD8ZZ Inspection of Lower Intestinal Tract, Via Natural or Artificial Opening Endoscopic (ICD-10-PCS; principal; 2019-02-20 10:00)
DX: Z12.11 Encounter for screening for malignant neoplasm of colon (principal)

== ENCOUNTER 2019-05-31 11:15 | Emergency (ER) | payer OTHER ==
[2019-05-31 11:33] VITALS: TEMP 98; BMI 24.2
[2019-05-31] MEDS ORDERED: ACETAMINOPHEN 325 MG TABLET (FP) ONE (11:52)
[2019-05-31] MEDS ORDERED: CYCLOBENZAPRINE HCL 10 MG TABLET (FP) ONE (11:53)
[2019-05-31] MEDS ORDERED: ACETAMINOPHEN 325 MG TABLET (FP) PO ONE (11:54)
[2019-05-31] MEDS ORDERED: CYCLOBENZAPRINE HCL 10 MG TABLET (FP) PO ONE (11:54)
--- NOTE | 2019-05-31 11:59 | PDOC ---
History of Present Illness - General Chief Complaint: Back Pain Stated Complaint: BACK PAIN Time Seen by Provider: 05/31/19 11:27 - History of Present Illness Initial Comments: 05/31/19 12:00 Chief complaint: Low back pain HPI: Patient with a history of back pain since 2018, at that time resolved with rest and physical therapy, minor recurrences since then, resolving quickly. Recurrent low back pain for 2 days, bilateral sacral area, with radiation to both legs, worse on the right. 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 She has taken Tylenol and rested yesterday, using intermittent heat, but the pain is worse. She is unable to take nonsteroidal anti-inflammatory agents because of an untoward reaction in the past. She also refuses narcotic analgesics. Review of systems: As above. In addition, no chest pain, shortness of breath, abdominal pain, nausea, vomiting, diarrhea, visual or focal neurologic symptoms other than the radicular radiation of the pain is described above. Gait is stable but she is not ambulating well due to back pain and inability to completely straighten up. No saddle anesthesia and no bowel or bladder retention or incontinence. Past medical history: Elevated blood pressure in the past, on no treatment. Otherwise negative Social/family history reviewed and noncontributory Physical exam: Alert and oriented well-developed well-nourished mild to moderate distress due to low back pain. Cooperative Afebrile, vital signs normal except for moderately elevated blood pressure of 180/103. HEENT normal Neck supple without bruit mass or nodes. Nontender, no limited range of motion Chest clear CV regular without murmur rub or gallop pulses full and symmetric no JVD or edema no bruits Abdomen benign LS spine: There is loss of normal lumbar lordosis and paravertebral spasm bilaterally. There is no point tenderness over the vertebral bodies, no deformity of the lumbosacral spine, other than the straightening, and no visible or palpable inflammation. Straight leg raising is negative. No distal sensory or motor deficits. Pulses full and symmetric. No edema or posterior calf swelling or tenderness Neurologic intact Impression: Low back strain, muscle spasm, radicular symptoms without demonstrable neurologic deficits Plan: Rest, heat, Tylenol, Flexeril, avoid the sitting position, and follow-up orthopedist if no improvement in 1 week. She has seen Dr. Muir in the past and will follow-up with him. Treatment options are limited due to sensitivity to NSAIDs and unwillingness to take narcotic-containing medications. Adequately ambulatory at discharge today to follow-up as directed. Past History - Past Medical History Allergies/Adverse Reactions: Allergies Allergy/AdvReac Type Severity Reaction Status Date / Time NSAIDS (Non-Steroidal Allergy Mild Verified 05/31/19 11:21 Anti-Inflamma [Nsaids] orange Allergy Verified 05/31/19 11:21 peanut Allergy Verified 05/31/19 11:21 Tetanus Vaccines and Toxoid Allergy Verified 05/31/19 11:21 [Tetanus] FLU VACCINE Allergy Uncoded 05/31/19 11:21 Home Medications: Ambulatory Orders Atorvastatin Ca [Lipitor] 10 mg PO HS 30 Days #30 tablet 03/09/17 Propranolol HCl 40 mg PO BID 12/24/18 Acetaminophen/Caffeine/Butalb [Fioricet Tablets] 1 tablet PO DAILY PRN 02/17/19 Ascorbate Calcium [Vitamin C] 500 mg PO DAILY 02/17/19 Cholecalciferol (Vitamin D3) [Vitamin D3 -] 1,000 unit PO DAILY 02/17/19 Cyclobenzaprine HCl [Flexeril -] 10 mg PO TID #20 tablet 05/31/19 Anemia: Yes Asthma: No Cancer: No Cardiac Disorders: Yes (CARDIAC CATH-CHEST PAIN) CVA: No COPD: No CHF: No Dementia: No Diabetes: No GI Disorders: Yes (duodenal ulcer;GERD) Disorders: (NEPHROTIC SYNDROME A CHILD) HTN: Yes Hypercholesterolemia: Yes Seizures: No Thyroid Disease: No - Surgical History Abdominal Surgery: No Appendectomy: No Cholecystectomy: No - Reproductive History Dysfunctional Uterine Bleeding: Yes - Immunization History Immunization Up to Date: Yes - Psycho Social/Smoking Cessation Hx Smoking Status: No Smoking History: Never smoked Years of Tobacco Use: 0 Have you smoked in the past 12 months: No Number of Cigarettes Smoked Daily: 0 Cigars Per Day: 0 Hx Alcohol Use: No Drug/Substance Use Hx: No Substance Use Type: None Hx Substance Use Treatment: No *Physical Exam - Vital Signs Last Vital Signs Temp Pulse Resp BP Pulse Ox 98.0 F 55 L 15 182/103 H 96 05/31/19 11:19 05/31/19 11:19 05/31/19 11:19 05/31/19 11:19 05/31/19 11:19 Medical Decision Making - Medical Decision Making 05/31/19 12:11 Blood pressure down to 169/98. Pain is moderately improved. Discharge - Discharge Information Problems reviewed: Yes Clinical Impression/Diagnosis: Low back strain Qualifiers: Encounter type: initial encounter Qualified Code(s): S39.012A - Strain of muscle, fascia and tendon of lower back, initial encounter Hypertension Qualifiers: Hypertension type: unspecified Qualified Code(s): I10 - Essential (primary) hypertension Condition: Stable Disposition: HOME - Admission No - Additional Discharge Information Prescriptions: Cyclobenzaprine HCl [Flexeril -] 10 mg PO TID #20 tablet - Follow up/Referral Referrals: Jordin Muir MD [Staff Physician] - 1 week Gunnar Sim MD [Primary Care Provider] - 2 Days - Patient Discharge Instructions Patient Printed Discharge Instructions: Essential Hypertension, DI for Low Back Pain Additional Instructions: Rest, heat to low back, avoid the sitting position, either chair or car, medication as directed Follow-up back specialist if no improvement 1 week Your blood pressure is persistently elevated. You should have it rechecked by primary physician in 1 to 2 days and discuss therapy if it remains high, to avoid cardiac or neurologic complications in the future. - Post Discharge Activity Work/Back to School Note: Back to Work
[2019-05-31 12:11] VITALS: BP 169/98; PULSE 59
== END 2019-05-31 12:15 | disposition home or self-care (01) ==
LOC: FER 11:15
DX: S39.012A Strain of muscle, fascia and tendon of lower back, initial encounter (principal); I10 Essential (primary) hypertension; X58.XXXA Exposure to other specified factors, initial encounter; Y93.89 Activity, other specified; Y92.89 Other specified places as the place of occurrence of the external cause; Z88.8 Allergy status to other drugs, medicaments and biological substances; D64.9 Anemia, unspecified; K21.9 Gastro-esophageal reflux disease without esophagitis; E78.00 Pure hypercholesterolemia, unspecified; N04.9 Nephrotic syndrome with unspecified morphologic changes; Z91.018 Allergy to other foods; Z91.010 Allergy to peanuts
CPT/HCPCS: 99283-25